=== PATIENT | female | born 1965 | race Caucasian/White ===

== ENCOUNTER 2017-11-23 16:04 | Emergency (ER) | payer OTHER, SELFPAY ==
[2017-11-23 16:18] VITALS: BP 142/91; PULSE 91; RESP 20; TEMP 36.4; O2SAT 100; BMI 25.4
--- NOTE | 2017-11-23 16:38 | PC.NURSE ---
Patient with history of hemrrhoidectomy - bleeding from hemrroids. Patient soaked through pads x 3; Removed pad - no bleeding at present time;
--- NOTE | 2017-11-23 16:38 | ED.GIBLEED ---
HPI - GI Bleed General Chief complaint: GI Bleed Stated complaint: states rectal bleeding Time Seen by Provider: 11/23/17 16:32 Source: patient Mode of arrival: ambulatory Limitations: no limitations History of Present Illness HPI Narrative: Patient is a 52-year-old female who presents with rectal bleeding. She has a history of hemorrhoids she has bloody stools every day. It is not atypical for her to have rectal bleeding. However this time the bleeding was not stopping. She used pressure dressings twice any continues to bleed. She has no pain she did not have a painful bowel movement. She had a colonoscopy 5 years ago of questionable polyp. She denies dizziness lightheadedness or abdominal pain. No family history of colon cancer. Related Data Allergies Allergy/AdvReac Type Severity Reaction Status Date / Time azithromycin Allergy Verified 11/23/17 16:22 barium sulfate Allergy Verified 11/23/17 16:22 dihydroergotamine Allergy Verified 11/23/17 16:22 [From Migranal] Influenza Virus Vaccines Allergy Verified 11/23/17 16:22 promethazine [From Phenergan] Allergy Verified 11/23/17 16:22 Review of Systems Review of Systems All systems reviewed & are unremarkable except as noted in HPI and below Constitutional Denies chills, Denies fever(s), Denies lethargy and Denies weakness Cardiovascular Denies chest pain, Denies irregular heart rhythm, Denies lightheadedness, Denies palpitations and Denies orthopnea Gastrointestinal Gastrointestinal: Reports as per HPI Genitourinary Denies hematuria, Denies flank pain, Denies urinary incontinence and Denies urinary urgency Musculoskeletal Denies back pain, Denies muscle weakness, Denies numbness and Denies tingling Integumentary/Breasts Denies pruritus, Denies erythema, Denies rash and Denies wounds Neurologic Denies confusion, Denies numbness, Denies tingling and Denies weakness Psychiatric Denies anxiety, Denies confusion, Denies depression, Denies homicidal ideation and Denies suicidal ideation Endocrine Denies palpitations PFS Medical History Cholecystectomy planned (Acute) HTN (hypertension) (Acute) Ovarian cyst (Acute) Surgical History H/O hemorrhoidectomy (Acute) Exam Initial Vital Signs Initial Vital Signs: Vital Signs Temperature 97.5 F L 11/23/17 16:18 Pulse Rate 91 H 11/23/17 16:18 Respiratory Rate 20 11/23/17 16:18 Blood Pressure 142/91 H 11/23/17 16:18 Pulse Oximetry 100 11/23/17 16:18 GENERAL: Well-appearing, well-nourished and in no acute distress. HEENT: Head atraumatic,EOMI, pupils reactive CARDIOVASCULAR: Regular rate and rhythm without murmurs, rubs or gallops. RESPIRATORY: Breath sounds equal bilaterally, no wheezes rales or rhonchi. ABDOMEN: Soft, nontender. Normoactive bowel sounds all 4 quadrants. No guarding or rebound. RECTAL: Large hemorrhoid tags seen externally no active bleeding. Internal exam reveals no gross blood. Minimal tenderness EXTREMITIES: Normal range of motion, no clubbing or edema. Neurovascularly intact NEUROLOGICAL: Alert and oriented x4.Normal gait and speech. SKIN: Warm, dry, no laceration, no petechiae, no rashes or lesions. Course Vital Signs - 8 hr 11/23/17 16:18 Temperature 97.5 F L Pulse Rate 91 H Respiratory Rate 20 Blood Pressure 142/91 H Pulse Oximetry 100 MDM - GI Bleed MDM Narrative Medical decision making narrative: Long discussion with patient. The bleeding has now stopped and not returned. Long discussion with regards to blood work and colonoscopy. At this time she feels okay going home this happens to her frequently it just usually stops more quickly. We discussed when to return to the ED. All questions have been addressed. Discharge Plan Departure Patient Disposition: Home Clinical Impression: Hemorrhoids Discharge Date/Time: 11/23/17 17:27 Interventions: ED Discharge Assessment Last Done: 11/23/17 17:26 Instructions: DI for Hemorrhoidectomy, DI for Hemorrhoid Banding, DI for Hemorrhoids Activity Restrictions/Additional Instructions: *You have been diagnosed with hemorrhoids *What to do: Use you're best judgment on when to come to the emergency department. Recommend colonoscopy is and general surgery consult *Continue to take medications as directed *Follow up with your primary care provider in 2-3 days *Return to ER if you should have dizziness, lightheadedness, persistent bleeding or any new, worsening or concerning symptoms Referrals: [facility] [Outside] Naga Ridley MD [Primary Care Provider] -
== END 2017-11-23 17:27 | disposition home or self-care (01) ==
PROVIDERS: Emergency Provider Emergency Medicine; PCP General Practice
DX: K64.9 Unspecified hemorrhoids (principal)
CPT/HCPCS: 99282

== ENCOUNTER → 2017-12-26 17:07 | Outpatient (CLI) | payer OTHER, SELFPAY ==
--- NOTE | 2017-12-26 17:08 | DI.MRI.S_ITS ---
PROCEDURE: MR LUMBAR SPINE WO CON INDICATIONS: MIDLINE LOW BACK PAIN WITH LEFT SIDE SCIATICA TECHNIQUE: Noncontrast sagittal T1 spin echo and T2 fast echo, sagittal STIR, axial T1 and T2 fast spin echo through the lumbar spine. In cases with scoliosis, additional coronal T2 fast spin echo may be performed. COMPARISON: [facility], CR, XR LUMBAR SPINE WITH OLBIQUES PLUS FLEXION EXTENSION, 12/12/2017, 15:57. FINDINGS: Image quality: Excellent. Alignment and Curvature: There is grade 1 anterolisthesis of L4 on L5. Bone Marrow: Marrow is of normal overall signal. No acute vertebral body compression fractures. Spinal Cord: Conus medullaris terminates at the L1 level. Visualized cord demonstrates normal signal and size. Paraspinous Soft Tissues: No paravertebral masses. L1-L2: Normal appearance. L2-L3: Normal appearance. L3-L4: Mild loss of disc height and disc desiccation. There is mild posterior disc bulge. Mild bilateral facet arthropathy and hypertrophy of ligamentum flavum. The central canal is mildly narrowed. No foraminal stenosis. L4-L5: Uuxx-al-fpjeqest loss of disc height and disc desiccation. There is diffuse posterior disc bulge and disc protrusion. Mild bilateral facet arthropathy and hypertrophy of ligamentum flavum. The central canal is moderately narrowed. Mild bilateral foraminal stenosis. L5-S1: Preserved disc height and disc signal. There is mild posterior disc bulge. Small posterior central annular tear is suspected. Mild bilateral facet arthropathy. The central canal is patent. No foraminal stenosis. IMPRESSION: 1. Degenerative disc disease and facet arthropathy in the lower lumbar spine as described. 2. Moderate central canal stenosis at L4-L5 and mild to canal stenosis at L3-L4. 3. Mild foraminal stenosis at L4 and L5 bilaterally. Dictated by: Sydnie Story M.D. on 12/27/2017 at 11:33 Approved by: Sydnie Story M.D. on 12/27/2017 at 11:40
== END ==
PROVIDERS: PCP General Practice; Visit Provider Physical Medicine & Rehabilitation Pain Medicine
DX: M51.16 Intervertebral disc disorders with radiculopathy, lumbar region (principal); M47.26 Other spondylosis with radiculopathy, lumbar region; M48.061 Spinal stenosis, lumbar region without neurogenic claudication; M54.5 Low back pain
CPT/HCPCS: 72148

== ENCOUNTER 2018-01-13 06:51 | Day surgery (SDC) | payer OTHER, SELFPAY ==
[2018-01-13] VITALS (17 sets, daily range): BP systolic 75–115; BP diastolic 41–74; PULSE 58–92; RESP 14–20; TEMP 36.8–37.4; O2SAT 96–100; BMI 25.4
[2018-01-13] MEDS: SODIUM CHLORIDE 0.9% 1,000 ML 84 ML IV ×2 (07:30→09:14)
--- NOTE | 2018-01-13 07:57 | PM.PREOP ---
Pre-operative Note Interval Note Pre-op Check: Yes History & Physical Reviewed by Physician and Yes Exam Performed Changes: No H&P completed within 30 days and has changed as indicated here:: Patient seen and examined in the preoperative area. Her history and physical examination dated December 16, 2017 is on the chart and has not changed. Proceed with colonoscopy and possible hemorrhoid banding today as planned. ASA Class (for procedural sedation): II
[2018-01-13] MEDS: MIDAZOLAM 5 MG/5 ML VIAL IV (08:17)
[2018-01-13] MEDS: fentaNYL 250 MCG/5 ML INJ IV (08:17)
--- NOTE | 2018-01-13 08:29 | PM.OP.ENDO ---
Operative Date/Time/Diagnoses Date of procedure: 01/13/18 Time of procedure: 08:29 Pre-op diagnosis: Rectal bleeding Post-op diagnosis: other (Rectal bleeding secondary to inflamed internal hemorrhoid) Procedure & Clinicians Study performed: 1. Sedation per surgeon 2. Colonoscopy 3. Internal hemorrhoid banding of single cushion on right side Same procedure as scheduled: Yes Indications: 52-year-old female with rectal bleeding. She has had issues with bleeding from hemorrhoids in the past. She is status post hemorrhoidectomy some time ago. Her last colonoscopy was in 2010. Given her symptoms repeat colonoscopy with potential hemorrhoid banding is now recommended. Surgeon: Logan Benites Procedure Notes SCOAP/Timeout: Yes Procedure in detail: After obtaining informed consent, the patient was brought to the GI suite and placed in the left lateral decubitus position on the examination table. After placement of appropriate monitors, the patient was given incremental doses of Versed and Fentanyl until an appropriate level of sedation was achieved. A time out was held per SCOAP protocol. A digital rectal examination was performed and did not reveal any masses or obstructing lesions. The colonoscope was gently passed into the patient's anus and the entire colon navigated to the level of the cecum with minimal difficulty. Once in the cecum, the scope was withdrawn being sure to go before and beyond all mucosal folds and prominences and get an excellent examination. The findings are noted above. At the level of the rectal vault, the scope was retroflexed and the internal anal canal was examined. The scope was straightened and air aspirated from the colon. The instrument was removed from the patient's body and the procedure was concluded. Retroflexed view revealed an enlarged grade 2 inflamed internal hemorrhoid. Other internal hemorrhoid cushions were unremarkable. Of note, she did have circumferential mildly enlarged external hemorrhoids but with no evidence of thrombosis or inflammation. No evidence of fissures or fistula. Therefore the colonoscope was removed and the anoscope inserted. Hemorrhoid cushion was identified and secured with a curved Allis clamp through the hemorrhoid banding applicator. A single band was applied without difficulty. Anoscope was removed. Patient tolerated the procedure well. The patient was allowed to awaken from sedation without difficulty and taken to the post-anesthesia care unit in good condition. Scope withdrawal time: 8:32 min Sedation minutes: 28 Findings: internal hemorrhoids (Grade 2 right cushion inflamed, subsequently banded) and other findings (Otherwise normal colon and rectum) Specimen(s): none sent Complications: none Recommendations: Colonscopy in 10 years and High fiber diet Plan for aftercare: 1. Discharged home 2. Follow up in surgery Clinic in 2 weeks Follow up: weeks (Dr. Benites in 2 weeks) Disposition: PACU
[2018-01-13] MEDS: OXYCODONE/ACETAMINOPHEN 5/325 TABLET 1 TAB PO (08:59)
--- NOTE | 2018-01-13 09:00 | SUR.PHASEII ---
0803 pt reported pain . Called Dr. Benites and let him know. RN given verbal order for 1 percocet. Order read back and confirmed.
--- NOTE | 2018-01-13 09:11 | SUR.PHASEII ---
took blood pressure and her blood pressure dropped to 75/45 New bag of fluids hung and pt. layed flat. Hooked back up to monitors and will be monitored in Pac[facility] until blood pressure stable.
--- NOTE | 2018-01-13 09:27 | SUR.PHASEII ---
Dr. Benites aware pt's blood pressure decreased. Now blood pressure increasing and pt states she feels fine. She is just tired. Abdomen soft and nontender. bowel sounds active x 4. no bleeding noted.
--- NOTE | 2018-01-13 09:51 | SUR.PHASEII ---
report given to Deborah Jara RN
== END 2018-01-13 11:18 ==
LOC: ENDO 06:52
PROVIDERS: PCP General Practice; Visit Provider Surgery
PROC: 0DJD8ZZ Inspection of Lower Intestinal Tract, Via Natural or Artificial Opening Endoscopic (ICD-10-PCS; CPT 45378; principal; 2018-01-13 07:45)
DX: K62.5 Hemorrhage of anus and rectum (principal); K64.1 Second degree hemorrhoids; I10 Essential (primary) hypertension
CPT/HCPCS: 45378; 46221; 99152; 99153; J2250; J3010

== ENCOUNTER → 2022-01-11 07:59 | Outpatient (CLI) | payer OTHER, SELFPAY ==
--- NOTE | 2022-01-11 | DI.MRI.S_ITS ---
PROCEDURE: MR CERVICAL SPINE WO/W CON INDICATIONS: Other fatigue; Unspecified visual disturbance TECHNIQUE: Noncontrast sagittal T1 spin echo and T2 fast spin echo, sagittal STIR, foraminal oblique sagittal T2 fast spin echo, axial gradient echo or T2 fast spin echo through the cervical spine. After the administration of contrast, sagittal and axial T1 spin echo with fat saturation through the cervical spine. COMPARISON: [facility], MR, MR LUMBAR SPINE WO/W CON, 01/11/2022, 8:16. [facility], MR, MR THORACIC SPINE WO/W CON, 01/11/2022, 8:16. FINDINGS: Image quality: Excellent. Alignment and curvature: There is overall straightening of the normal cervical lordosis. No focal AP alignment abnormality is seen. Marrow: Marrow demonstrates normal overall signal. Spinal cord: Visualized spinal cord is normal in size, without white matter lesions. No suspicious intramedullary enhancement. No cerebellar tonsillar herniation. Paraspinous soft tissues: No paravertebral masses or suspicious enhancement. C2-C3: Normal appearance. C3-C4: No significant abnormality is seen. C4-C5: The disc height and disc signal are relatively well preserved. Mild to moderate disc osteophyte complex is seen, with a central/left disc osteophyte protrusion, as on series 14, image 22. No significant neural foraminal narrowing is seen. Mild to moderate central canal narrowing is seen, with minimal associated mass effect upon the ventral spinal cord. C5-C6: Mild loss of disc height is seen. Loss of disc signal is seen. Mild to moderate disc osteophyte complex is seen, with a mild central disc osteophyte protrusion. Mild facet joint hypertrophy is seen. There is moderate right-sided and mild left-sided neural foraminal narrowing. Mild to moderate central canal narrowing is seen. There is associated mass effect upon the ventral spinal cord. C6-C7: Moderate loss of disc height is seen. Loss of disc signal is seen. Moderate generalized disc osteophyte complex is seen. Mild facet joint hypertrophy is seen. There is at least moderate right-sided and minimal left-sided neural foraminal narrowing. Mild central canal narrowing is seen. C7-T1: Normal appearance. IMPRESSION: No suspicious T2 hyperintense white matter lesions can be seen within the cervical cord to suggest multiple sclerosis plaques. No abnormal enhancement is seen. Multiple levels of underlying cervical spine degenerative change can be seen. Dictated by: Fco Tavarez M.D. on 01/11/2022 at 9:53 Approved by: Fco Tavarez M.D. on 01/11/2022 at 9:57
--- NOTE | 2022-01-11 | DI.MRI.S_ITS ---
PROCEDURE: MR LUMBAR SPINE WO/W CON INDICATIONS: Other fatigue; Unspecified visual disturbance TECHNIQUE: Noncontrast sagittal T1 spin echo and T2 fast spin echo, sagittal STIR, axial T1 and T2 fast spin echo through the lumbar spine. In cases with scoliosis, additional coronal T2 fast spin echo may be performed. After the administration of contrast, sagittal and axial T1 spin echo with fat saturation through the lumbar spine. COMPARISON: None. FINDINGS: Image quality: Excellent. Alignment and curvature: There is normal bony alignment. Marrow: Marrow is of normal overall signal. No acute vertebral body compression fractures. No suspicious marrow enhancement. L4-5 discectomy and fusion with posterior janusz and screw instrumentation Spinal cord: Conus medullaris terminates at the L1 level. Visualized spinal cord demonstrates normal signal, without suspicious enhancement. Paraspinous soft tissues: No paravertebral masses or abnormal enhancement. T12-L1: Normal appearance. L1-L2: Normal appearance. L2-L3: Normal appearance. L3-L4: Disc space narrowing and circumferential disc bulge with ligamentum flavum laxity results in moderate central stenosis. No foraminal stenosis L4-L5: Discectomy and fusion with right laminotomy noted. No central stenosis. No foraminal stenosis. L5-S1: Normal appearance. IMPRESSION: 1. Degenerative disc disease and arthropathy at L3-4 results in moderate central without foraminal stenosis 2. Prior L4-5 discectomy and fusion Approved by: Hans Keller M.D. on 01/11/2022 at 14:07
--- NOTE | 2022-01-11 | DI.MRI.S_ITS ---
PROCEDURE: MR THORACIC SPINE WO/W CON INDICATIONS: Other fatigue; Unspecified visual disturbance TECHNIQUE: Noncontrast sagittal T1 spin echo and T2 fast spin echo, sagittal STIR, axial T1 and T2 fast spin echo through the thoracic spine. After the administration of contrast, axial and sagittal T1 spin echo with fat saturation through the thoracic spine. COMPARISON: [facility], MR, MR CERVICAL SPINE WO/W CON, 01/11/2022, 8:16. [facility], MR, MR LUMBAR SPINE WO/W CON, 01/11/2022, 8:16. FINDINGS: Image quality: This examination is limited by involuntary motion artifact. Alignment and curvature: There is normal bony alignment. Marrow: Marrow is of normal overall signal. No acute vertebral body compression fractures. Spinal cord: In this patient with this given history, scrutiny is given to abnormal T2 hyperintense lesions within the thoracic spinal cord. None can be seen. Visualized spinal cord is of normal signal and size, without abnormal enhancement. Paraspinous soft tissues: No paravertebral masses or abnormal enhancement. Miscellaneous: Mild scattered thoracic spine degenerative change can be seen, which is worst within the superior to mid thoracic spine. No significant level of central canal or neural foraminal narrowing can be seen. IMPRESSION: No suspicious white matter lesions can be seen within the thoracic spinal cord. No abnormal enhancement is seen. Mild underlying degenerative changes are seen. Dictated by: Fco Tavarez M.D. on 01/11/2022 at 9:48 Approved by: Fco Tavarez M.D. on 01/11/2022 at 9:51
== END ==
PROVIDERS: PCP Family Medicine; Referring Provider Family Medicine; Visit Provider Family Medicine
DX: H53.9 Unspecified visual disturbance (principal); R53.83 Other fatigue; M47.814 Spondylosis without myelopathy or radiculopathy, thoracic region; M47.812 Spondylosis without myelopathy or radiculopathy, cervical region; M47.816 Spondylosis without myelopathy or radiculopathy, lumbar region; Z98.1 Arthrodesis status
CPT/HCPCS: 72156; 72157; 72158; A9579

== ENCOUNTER → 2022-01-19 09:01 | Outpatient (CLI) | payer OTHER, SELFPAY ==
--- NOTE | 2022-01-19 | DI.MRI.S_ITS ---
PROCEDURE: MR HEAD/BRAIN WO/W CON INDICATIONS: Unspecified visual disturbance TECHNIQUE: Noncontrast axial T1 spin echo, axial T2 fast spin echo, sagittal and axial FLAIR, coronal T2 fast spin echo, axial gradient echo, axial diffusion and ADC through the brain. After the administration of contrast, axial and coronal and sagittal 3D VIBE or T1 spin echo with fat saturation through the brain. COMPARISON: None. FINDINGS: Image quality: Excellent. CSF Spaces: Basal cisterns are patent. No extra-axial fluid collections. Ventricles are normal in size and shape. Brain: No midline shift. No intracranial bleeds or masses. No abnormal intracranial enhancement. The brainstem appears normal. Diffusion-weighted images demonstrate no acute ischemic insults. No chronic ischemic insults. Normal intravascular flow voids are present. Skull and face: Calvarial marrow is normal in signal. Orbits appear normal. Sinuses: Sinuses and mastoids appear clear. IMPRESSION: Unremarkable MRI of the brain. Dictated by: Gene Bearden M.D. on 01/19/2022 at 10:30 Approved by: Gene Bearden M.D. on 01/19/2022 at 10:32
== END ==
PROVIDERS: PCP Family Medicine; Referring Provider Family Medicine; Visit Provider Family Medicine
DX: H53.9 Unspecified visual disturbance (principal)
CPT/HCPCS: 70553

== ENCOUNTER → 2022-10-07 09:41 | Outpatient (CLI) | payer OTHER, SELFPAY ==
--- NOTE | 2022-10-07 | DI.RAD.S_ITS ---
PROCEDURE: XR CHEST 2V INDICATIONS: Other specified arthritis, unspecified site TECHNIQUE: 2 views of the chest were acquired. COMPARISON: [facility], CR, XR CLAVICLE LEFT, 09/11/2022, 9:27. [facility], CT, CT CHEST WITHOUT CONTRAST, 01/16/2019, 14:20. FINDINGS: Surgical changes and devices: Cholecystectomy clips. Lungs and pleura: Lungs are clear. No pleural effusions or pneumothorax. Mediastinum: Mediastinal contours are normal. Heart size is normal. Bones and chest wall: No suspicious bony abnormalities. Soft tissues appear unremarkable. IMPRESSION: No acute cardiopulmonary abnormality. Dictated by: Juan Zimmerman M.D. on 10/07/2022 at 10:35 Approved by: Juan Zimmerman M.D. on 10/07/2022 at 10:36
--- NOTE | 2022-10-07 | DI.RAD.S_ITS ---
PROCEDURE: XR WRIST RT 2V INDICATIONS: Other specified arthritis, unspecified site TECHNIQUE: 2 views of the wrist were acquired. COMPARISON: None. FINDINGS: Bones: No fractures or dislocations. No suspicious bony lesions. Negative ulnar variance. Scaphoid view: Not obtained Soft tissues: No suspicious soft tissue calcifications. IMPRESSION: Negative ulnar variance, without lunate necrosis. Dictated by: Aly Enamorado M.D. on 10/07/2022 at 11:18 Approved by: Aly Enamorado M.D. on 10/07/2022 at 11:19
--- NOTE | 2022-10-07 | DI.RAD.S_ITS ---
PROCEDURE: XR HAND RT 2V INDICATIONS: Other specified arthritis, unspecified site TECHNIQUE: 3 views of the hand(s) acquired. COMPARISON: [facility], CR, XR WRIST RT 2V, 10/07/2022, 9:47. [facility], CR, XR HAND LT 2V, 10/07/2022, 9:47. [facility], CR, XR WRIST LT 2V, 10/07/2022, 9:47. FINDINGS: Bones: No fractures or dislocations. Carpal bones are normally aligned. No suspicious bony lesions. Possible old ulnar styloid fracture. Mild osteoarthritic changes at the radiocarpal joint, 1st carpometacarpal joint, 1st metacarpophalangeal joint and multiple interphalangeal joints. Soft tissues: No suspicious soft tissue calcifications. IMPRESSION: Mild osteoarthritis. Dictated by: Sydnie Story M.D. on 10/07/2022 at 11:26 Approved by: Sydnie Story M.D. on 10/07/2022 at 12:06
--- NOTE | 2022-10-07 | DI.RAD.S_ITS ---
PROCEDURE: XR WRIST LT 2V INDICATIONS: Other specified arthritis, unspecified site TECHNIQUE: 2 views of the wrist were acquired. COMPARISON: None. FINDINGS: Bones: No fractures or dislocations. No suspicious bony lesions. Negative ulnar variance. Scaphoid view: Not obtained. Soft tissues: No suspicious soft tissue calcifications. IMPRESSION: Negative ulnar variance, without lunate necrosis. Dictated by: Aly Enamorado M.D. on 10/07/2022 at 11:19 Approved by: Aly Enamorado M.D. on 10/07/2022 at 11:20
--- NOTE | 2022-10-07 | DI.RAD.S_ITS ---
PROCEDURE: XR HAND LT 2V INDICATIONS: Other specified arthritis, unspecified site TECHNIQUE: 2 views of the hand(s) acquired. COMPARISON: [facility], CR, XR HAND 3+ VIEWS BILATERAL, 06/04/2022, 9:54. [facility], CR, XR WRIST RT 2V, 10/07/2022, 9:47. [facility], CR, XR WRIST LT 2V, 10/07/2022, 9:47. FINDINGS: Bones: No fractures or dislocations. Carpal bones are normally aligned. No suspicious bony lesions. Ulnar negative variance. Mild osteoarthritic changes at the triscaphe joint, 1st carpometacarpal joint, and multiple interphalangeal joints. Soft tissues: No suspicious soft tissue calcifications. IMPRESSION: 1. Mild osteoarthritis. 2. Ulnar negative variance. Dictated by: Sydnie Story M.D. on 10/07/2022 at 15:46 Approved by: Sydnie Story M.D. on 10/07/2022 at 16:03
--- NOTE | 2022-10-13 10:17 | P.PFT.S_ITS ---
Pulmonary Function Test Referral & Results Date Patient Seen: 10/07/22 Results: The?spirometry?demonstrates?an?FVC?of?2.93?L?which?is?87%?of?predicted. The?FEV1?was?measured?at?2.41?L?which?is?92%?of?predicted. The?FEV1/FVC?ratio?was?82?which?is?105%?of?predicted. Following?the?admin istration?of?bronchodilator?there?was?no?appreciable?change?to?above?normal?numb ers. Interpretation: This?study?which?was?done?as?for chris?spirometry?alone,?with?and?without?bronchodilator,?demonstrates?normal?pulmo nary?function
== END ==
PROVIDERS: PCP Family Medicine; Referring Provider Chiropractor; Visit Provider Chiropractor
DX: R91.1 Solitary pulmonary nodule (principal); M13.80 Other specified arthritis, unspecified site
CPT/HCPCS: 71046; 73100; 73120; 94060

== ENCOUNTER → 2022-12-17 14:54 | Outpatient (CLI) | payer OTHER, SELFPAY ==
--- NOTE | 2022-12-17 14:55 | DI.RAD.S_ITS ---
PROCEDURE: XR ANKLE LT MIN 3V INDICATIONS: Left ankle sprain w/swelling x1 month TECHNIQUE: 3 views of the ankle were acquired. COMPARISON: None. FINDINGS: Bones: No fractures or dislocations. Ankle mortise is normally aligned. No suspicious bony lesions. Soft tissues: No tibiotalar joint effusion. Achilles tendon appears normal. Lateral soft tissue swelling IMPRESSION: Soft tissue swelling without fracture or foreign body Approved by: Hans Keller M.D. on 12/17/2022 at 20:00
== END ==
PROVIDERS: PCP Family Medicine; Referring Provider Family Medicine; Visit Provider Family Medicine
DX: S93.402A Sprain of unspecified ligament of left ankle, initial encounter (principal); M79.89 Other specified soft tissue disorders; X58.XXXA Exposure to other specified factors, initial encounter
CPT/HCPCS: 73610

== ENCOUNTER → 2023-04-18 09:01 | Outpatient (CLI) | payer OTHER, SELFPAY ==
[2023-04-18 09:50] LABS: Add Manual Diff / Slide Review NO; Basophils Absolute Auto 100 /uL (0-100); Eosinophils Absolute Auto 100 /uL (0-450); Eosinophils Percent Auto 1.8 % (2-4); Hematocrit 37.9 % (36-46); Hemoglobin 12.9 g/dL (12.0-16.0); Lymphocytes Absolute Auto 1400 /uL (1100-4500); Lymphocytes Percent Auto 25.2 % (25-40); Mean Corpuscular Hemoglobin 31.6 PG (26-34); Monocytes Absolute Auto 500 /uL (0-900); Monocytes Percent Auto 8.1 % (3-14); Neutrophils Absolute Auto 3600 /uL (1500-7000); Neutrophils Percent Auto 63.9 % (50-75); Platelet Count 362 X10^3/uL (150-400); Red Blood Cell Count 4.07 X10^6/uL (4.0-5.2); Red Cell Distribution Width 12.6 % (11.6-14.8); White Blood Cell Count 5.6 X10^3/uL (4.5-11.0)
[2023-04-18 09:58] LABS: Hemoglobin A1C% w Est Avg Glu 5.1 % (4.0-6.0)
[2023-04-18 10:04] LABS: Alanine Aminotransferase 12 IU/L (<35); Albumin 4.5 g/dL (3.5-5.0); Albumin Globulin Ratio 1.6 (1.0-2.8); Alkaline Phosphatase 50 U/L (38-126); Aspartate Aminotransferase 23 IU/L (14-36); BUN Creatinine Ratio 23.9 (6-22); Bilirubin Total 0.6 mg/dL (0.2-1.3); Blood Urea Nitrogen 21 mg/dL (7-17); C-Reactive Protein Quant 0.5 mg/dL (<1.0); Calcium 9.4 mg/dL (8.4-10.2); Carbon Dioxide 28 mmol/L (22-32); Chloride 102 mmol/L (98-107); Cholesterol 232 mg/dL (140-199); Estimated Glomerular Filt Rate > 60 mL/min (>60); Globulin 2.9 g/dL (1.7-4.1); Glucose 105 mg/dL (70-100); HDL Cholesterol 82 mg/dL (40-60); HEMOLYSIS < 15 (0-50); LDL Cholesterol Calculated 137 mg/dL (<100); Potassium 4.4 mmol/L (3.4-5.1); Sodium 137 mmol/L (137-145); Total Protein 7.4 g/dL (6.3-8.2); Triglycerides 67 mg/dL (35-150)
[2023-04-18 10:33] LABS: TSH w/ Reflex to FT4 1.64 uIU/mL (0.47-4.68)
[2023-04-18 10:50] LABS: Creatinine Urine Random 36.4 mg/dL
[2023-04-18 10:53] LABS: Microalbumin Urine Random < 0.6 mg/dL (0-1.6)
== END ==
PROVIDERS: PCP Family Medicine; Referring Provider Family Medicine; Visit Provider Family Medicine
DX: I10 Essential (primary) hypertension (principal); E78.00 Pure hypercholesterolemia, unspecified; L40.50 Arthropathic psoriasis, unspecified; E04.1 Nontoxic single thyroid nodule; Z13.1 Encounter for screening for diabetes mellitus
CPT/HCPCS: 36415; 80053; 80061; 82043; 82570; 83036; 84443; 85025; 86140

== ENCOUNTER → 2023-06-06 17:00 | Outpatient (CLI) | payer OTHER, SELFPAY ==
--- NOTE | 2023-06-06 | DI.MRI.S_ITS ---
PROCEDURE: MR CERVICAL SPINE WO CON INDICATIONS: Cervicalgia TECHNIQUE: Noncontrast sagittal T1 spin echo and T2 fast spin echo, sagittal STIR, foraminal oblique sagittal T2 fast spin echo, and axial gradient echo or T2 fast spin echo through the cervical spine. COMPARISON: [facility], MR, MR CERVICAL SPINE WITH/WITHOUT CONTRAST, 09/02/2022, 8:21. FINDINGS: Image quality: Excellent. Alignment and Curvature: Straightening of the normal cervical lordosis. Bone Marrow: Marrow demonstrates normal overall signal. Spinal Cord: Visualized spinal cord has normal size and signal. No cerebellar tonsillar herniation. Paraspinous Soft Tissues: No paravertebral masses. Prevertebral soft tissues are normal in thickness. C2-C3: Normal appearance. C3-C4: No central canal stenosis. Facet and uncovertebral arthropathy. Mild left and no right neural foraminal stenosis. C4-C5: Disc desiccation and mild posterior disc osteophyte complex. Mild central canal stenosis. No neural foraminal stenosis. C5-C6: Disc desiccation and mild posterior disc osteophyte complex. Mild central canal stenosis. Facet and uncovertebral arthropathy. Mild right neural foraminal stenosis. No left neural foraminal stenosis. C6-C7: Disc desiccation and mild posterior disc osteophyte complex. Mild central canal stenosis. Facet and uncovertebral arthropathy. Mild right and no left neural foraminal stenosis. C7-T1: Normal appearance. IMPRESSION: Mild degenerative changes of the cervical spine are similar in appearance to prior, as described above. Dictated by: Hernan Carlos M.D. on 06/07/2023 at 10:57 Approved by: Hernan Carlos M.D. on 06/07/2023 at 11:01
== END ==
PROVIDERS: PCP Family Medicine; Referring Provider Internal Medicine; Visit Provider Internal Medicine
DX: M54.2 Cervicalgia (principal); M47.812 Spondylosis without myelopathy or radiculopathy, cervical region
CPT/HCPCS: 72141

== ENCOUNTER 2023-07-26 12:08 | Emergency (ER) | payer OTHER, SELFPAY ==
[2023-07-26 12:12] VITALS: BP 148/97; PULSE 87; RESP 16; TEMP 36.8; O2SAT 99; BMI 27.4
--- NOTE | 2023-07-26 13:03 | DI.CT.S_ITS ---
PROCEDURE: CT HEAD/BRAIN WO CON INDICATIONS: head injury TECHNIQUE: Noncontrast 4.5 mm thick angled axial sections acquired from the foramen magnum to the vertex, with coronal and sagittal reformats. For radiation dose reduction, the following was used: automated exposure control, adjustment of mA and/or kV according to patient size. COMPARISON: [facility], MR, MR IAC WITH/WITHOUT CONTRAST, 07/26/2022, 11:57. FINDINGS: Image quality: Mild streak artifact can be seen through the skull base. CSF spaces: Basal cisterns are patent. No extra-axial fluid collections. Ventricles are normal in size and shape. Brain: No midline shift. No intracranial masses or hemorrhage. Viera-white matter interface is normal. Skull and face: Calvarium and visualized facial bones are intact, without suspicious lesions. Sinuses: Visualized sinuses and mastoids are clear. IMPRESSION: No acute intracranial hemorrhage is seen. No acute intracranial pathology. No displaced calvarial fracture can be seen. Dictated by: Fco Tavarez M.D. on 07/26/2023 at 13:20 Approved by: Fco Tavarez M.D. on 07/26/2023 at 13:21
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
[2023-07-26] MEDS: ONDANSETRON 4 MG ODT SL (13:17)
[2023-07-26] MEDS: ACETAMINOPHEN 325 MG TABLET 975 MG PO (13:40)
[2023-07-26 15:13] VITALS: BP 140/95; PULSE 85; RESP 16; O2SAT 98
== END 2023-07-26 15:14 | disposition home or self-care (01) ==
PROVIDERS: Emergency Provider Student in an Organized Health Care Education/Training Program; PCP Family Medicine
DX: S06.0X0A Concussion without loss of consciousness, initial encounter (principal); W22.8XXA Striking against or struck by other objects, initial encounter
CPT/HCPCS: 70450; 99283; 99284

== ENCOUNTER → 2024-02-01 07:37 | Outpatient (CLI) | payer OTHER, SELFPAY ==
--- NOTE | 2024-02-01 | DI.MG.S_ITS ---
BILATERAL DIGITAL SCREENING MAMMOGRAM 3D/2D WITH CAD WITH AUGMENTATION: 02/01/2024 Comparison is made to exams dated: 06/30/2022 mammogram, 02/19/2020 mammogram, and 04/09/2015 mammogram - [facility]. There are scattered areas of fibroglandular density (category b / 25%-50% glandular tissue). Current study was also evaluated with a Computer Aided Detection (CAD) system. Bilateral breast implants are stable and intact. No significant masses, calcifications, or other findings are seen in either breast. There has been no significant interval change. IMPRESSION: NEGATIVE There is no mammographic evidence of malignancy. A 1 year screening mammogram is recommended. Based on the Tyrer Cuzick model (a risk assessment model) the patient's lifetime risk is 6.4% and her 10 year risk is 2.4%. According to the ACR, ACS, and NCCN guidelines, an annual breast MRI exam along with mammogram is recommended if the patient's lifetime risk is 20% or greater. This exam was interpreted at Station ID: [id number]. NOTE: For mammograms, a report in lay terms will be sent to the patient. Approximately 15% of breast malignancies will not be visualized mammographically. In the management of a palpable breast mass, a negative mammogram must not discourage biopsy of a clinically suspicious lesion. Electronically Signed By: Marcia Saha M.D., Ph.D. latisha/haydee:02/01/2024 13:38:16 letter sent: Normal Exam ACR BI-RADS Category 1: Negative
== END ==
PROVIDERS: PCP Internal Medicine; Referring Provider Internal Medicine; Visit Provider Internal Medicine
DX: Z12.31 Encounter for screening mammogram for malignant neoplasm of breast (principal)
CPT/HCPCS: 77063; 77067

== ENCOUNTER → 2024-03-19 07:03 | Outpatient (CLI) | payer OTHER, SELFPAY ==
--- NOTE | 2024-03-19 07:04 | DI.MRI.S_ITS ---
PROCEDURE: MR ANKLE RT WO CON INDICATIONS: Achilles pain with walking,standing TECHNIQUE: Noncontrast sagittal T1 spin echo and T2 fast spin echo with fat saturation, axial proton density fast spin echo and T2 fast spin echo with fat saturation, coronal T1 spin echo and T2 fast spin echo with fat saturation through the ankle/hindfoot. COMPARISON: None. FINDINGS: Image quality: Excellent. Bones and joints: Mild midfoot and hindfoot joint osteoarthritic changes are seen with joint space narrowing and subchondral sclerosis. No bone marrow contusions or fractures. No hindfoot coalitions. No osteochondral injuries of the talar dome. Small amount of tibiotalar and subtalar joint effusion, no loose bodies. Medial structures: The posterior tibialis tendon is mildly thickened at the level of distal talus and talonavicular joint with small amount of fluid distending tendon sheath. The flexor digitorum longus, and flexor hallucis longus tendons are intact. The posterior tibial neurovascular bundle appears normal within the tarsal tunnel, without extrinsic mass effect. The deltoid ligament and spring ligament are intact. Lateral structures: The anterior talofibular ligament is thickened. The calcaneofibular, and posterior talofibular ligaments appear intact. More superiorly, the anterior and posterior tibiofibular ligaments appear intact, as is the intermalleolar ligament. The tibiofibular syndesmosis is normal in width at 2 mm or less. The peroneus longus and brevis tendons are mildly thickened with small amount of fluid distending tendon sheath at the level of lateral malleolus tip extending to the level of distal calcaneus. No signal abnormality is noted within the sinus tarsi. Anterior structures: The tibialis anterior, extensor hallucis longus, and extensor digitorum longus tendons appear intact. The dorsal talonavicular ligament appears intact. Posterior and plantar structures: Diffuse thickening of the Achilles tendon with mild adjacent soft tissue edema extending to its posterior calcaneal insertion. Medial and lateral bands of the plantar fascia are of normal thickness. No abductor digiti quinti muscle atrophy to suggest Miguel neuropathy. IMPRESSION: 1. [id number] Achilles tendinosis extending to its posterior calcaneal insertion. No Achilles tendon rupture. 2. Mild midfoot and hindfoot joint osteoarthritis. No fracture or dislocation. No osteochondral injuries of talar dome. Small joint effusion, no loose bodies. 3. Low-grade tenosynovitis involving posterior tibialis tendon at the level of distal talus and talonavicular joint. 4. Low-grade tenosynovitis involving peroneus tendons at the level of lateral malleolus tip extending to the level of distal calcaneus. 5. Low to moderate grade ATFL sprain. No full-thickness ankle ligament rupture. Dictated by: Zeke Allen M.D. on 03/19/2024 at 11:44 Approved by: Zeke Allen M.D. on 03/19/2024 at 11:48
== END ==
PROVIDERS: PCP Internal Medicine; Referring Provider Internal Medicine; Visit Provider Internal Medicine
DX: M76.61 Achilles tendinitis, right leg (principal); M19.071 Primary osteoarthritis, right ankle and foot; M25.474 Effusion, right foot; M65.971 Unspecified synovitis and tenosynovitis, right ankle and foot; S93.491A Sprain of other ligament of right ankle, initial encounter
CPT/HCPCS: 73721